=== PATIENT | female | born 1935 | race Two or more races ===

== ENCOUNTER 2019-01-05 19:47 | Emergency (ER) | payer MEDICARE, MEDICAID ==
[~2019-01-05] VITALS: Ht 152.4 cm; Wt 68.6 kg
[2019-01-05 20:29] LABS: BASOPHILS % (AUTO) 0.5 % (0.0-2.0); EOSINOPHILS % (AUTO) 0.1 % (0.0-6.0); HEMATOCRIT 38 % (33-45); HEMOGLOBIN 12.5 g/dL (11.5-14.8); LYMPHOCYTES # (AUTO) 0.6 /CMM (0.8-4.8); LYMPHOCYTES % (AUTO) 6.4 % (20.0-44.0); MEAN CORPUSCULAR HGB CONC 33 g/dl (31.0-36.0); MEAN CORPUSCULAR VOLUME 91 fL (82-100); MONOCYTES # (AUTO) 0.3 /CMM (0.1-1.30); MONOCYTES % (AUTO) 3.5 % (2.0-12.0); NEUTROPHILS # (AUTO) 8.6 /CMM (1.8-8.9); NEUTROPHILS % (AUTO) 89.5 % (43.0-81.0); PLATELET COUNT (AUTO) 185 /CMM (150-450); WHITE BLOOD COUNT (AUTO) 9.6 K/uL (4.3-11.0)
[2019-01-05] MEDS ORDERED: ONDANSETRON HCL/PF 4 MG/2 ML VIAL IVP ONE (20:30)
[2019-01-05] MEDS ORDERED: IV NS 0.9% 1,000 ML BAG IV ONE (20:30)
--- NOTE | 2019-01-05 20:32 | NUR ---
BIBDAUGHTER FROM HOME C/O UPPER ABDOMINAL PAIN X6 DAYS AND SOB X1 DAY +DIARRHEA, +VOMITTING, +DYSURIA, +BILATERAL FLANK PAIN. PT AAOX3, STATELESS SPEAKING, DAUGHTER @ BS HELPING W/ TRANSLATION. DENIES CP, DIZZINESS, WEAKNESS @ THIS TIME. 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 PT SEEN & EVAL'D BY DR. HARRINGTON & WILL CONT TO MONITOR.
[2019-01-05 20:37] LABS: CALCIUM, SERUM 9.1 mg/dL (8.5-10.1); CARBON DIOXIDE 26 mmol/L (21-32); CHLORIDE 99 mmol/L (98-107); CREATININE 0.7 mg/dL (0.6-1.3); GLUCOSE 250 mg/dL (74-106); SODIUM SERUM 134 mmol/L (136-145); UREA NITROGEN, BLOOD 12 mg/dL (7-18)
[2019-01-05 20:43] LABS: ALANINE AMINOTRANSFERASE 159 U/L (12-78); ALKALINE PHOSPHATASE 563 U/L (46-116); ASPARTATE AMINOTRANSFERASE 187 U/L (15-37); BILIRUBIN,TOTAL 2.5 mg/dL (0.2-1.0); LIPASE 111 U/L (73-393); TOTAL PROTEIN, SERUM 7.4 g/dL (6.4-8.2)
[2019-01-05] MEDS ORDERED: ONDANSETRON HCL/PF 4 MG/2 ML VIAL ONE (20:53)
--- NOTE | 2019-01-05 21:00 | NUR ---
MEDICATED FOR NAUSEA PER ERMD ORDER, PT MITCH WELL.
--- NOTE | 2019-01-05 21:32 | NUR ---
CALLED [facility] SPOKE WITH ALBARO TO PRESENT CASE . FAXED OVER FACESHEET AND CLINICALS TO .
--- NOTE | 2019-01-05 22:00 | NUR ---
CALL FROM [facility]. NO CAPACITY
[2019-01-05 22:30] LABS: APPEARANCE,URINE Clear (CLEAR); BILIRUBIN,URINE Negative (NEGATIVE); BLOOD, URINE Negative Ery/uL (NEGATIVE); COLOR,URINE Yellow (YELLOW); KETONES,URINE >=160 (NEGATIVE); LEUKOCYTE ESTERASE ,URINE Negative (NEGATIVE); NITRITE, URINE Negative (NEGATIVE); PH,URINE 6.5 (5.0-8.0); PROTEIN,URINE Negative (NEGATIVE); UGLUCOSE 500 MG/DL mg/dL (NEGATIVE)
[2019-01-05 23:12] LABS: BACTERIA,URINE Few /HPF (None Seen); SQUAMOUS EPITHELIAL CELL,UR Few /HPF (None Seen)
--- NOTE | 2019-01-05 23:25 | NUR ---
PT ACCEPTED TO [facility] BY DR ARCINIEGA. [facility] [id number]. # FOR REPORT [phone] OPT 1 [phone]
--- NOTE | 2019-01-05 23:26 | NUR ---
[facility] CALLED FOR TRANSPORT. ETA 30 MIN. TRIP# [id number]
[2019-01-05 23:30] VITALS: BP 98/64
--- NOTE | 2019-01-05 23:35 | NUR ---
PT ASLEEP, EASILY AWAKEN BY VERBAL STIMULI. DENIES CP, SOB, DIZZINESS, N/V/D, WEAKNESS @ THIS TIME. DAUGHTER @ BS & WILL CONT TO MONITOR.
--- NOTE | 2019-01-05 23:57 | NUR ---
REPORT GIVEN TO CESAR GRULLON AT [facility] FOR CONT OF CARE.
--- NOTE | 2019-01-06 00:58 | NUR ---
[facility] AT BEDSIDE FOR TRANSPORT TO [facility].
== END 2019-01-06 01:00 | disposition short-term general hospital (02) ==
LOC: ER 19:47
DX: K80.50 Calculus of bile duct without cholangitis or cholecystitis without obstruction (principal); R11.2 Nausea with vomiting, unspecified; R06.02 Shortness of breath; I10 Essential (primary) hypertension; E11.65 Type 2 diabetes mellitus with hyperglycemia; Z90.710 Acquired absence of both cervix and uterus
CPT/HCPCS: 36415; 71045; 76705; 80048; 80076; 81001; 83690; 84484; 85025; 87086; 93005; 96361; 96374; 99285; J2405; J7030; 81000-TC